=== PATIENT | female | born 1970 | race Caucasian/White ===

== ENCOUNTER → 2017-01-21 | Outpatient (CLI) | payer MEDICAID | END | disposition home or self-care (01) | LOC: Rad HDHVI 12:48 | PROVIDERS: ATTEND Internal Medicine Cardiovascular Disease | DX: R06.02 Shortness of breath (principal) | CPT/HCPCS: 93306 ==

== ENCOUNTER → 2017-02-14 | Outpatient (CLI) | payer MEDICAID ==
[~2017-02-14] VITALS: Ht 160 cm; Wt 71.2 kg
[~2017-02-14] MED LIST: ADENOSINE 60 MG in GIVE UN-DILUTED 0 ML IV ONE; ADENOSINE 90 MG/30 ML INJ IV ONE
== END | disposition home or self-care (01) ==
LOC: Rad HDHVI 10:25
PROVIDERS: ATTEND Internal Medicine Cardiovascular Disease
DX: I10 Essential (primary) hypertension (principal); E11.9 Type 2 diabetes mellitus without complications; E78.00 Pure hypercholesterolemia, unspecified; F17.210 Nicotine dependence, cigarettes, uncomplicated; Z82.49 Family history of ischemic heart disease and other diseases of the circulatory system
CPT/HCPCS: 78452; 93005; 96374; 96375; A9500; J0153

== ENCOUNTER 2024-04-24 10:15 | Emergency (ER) | payer MEDICAID ==
[~2024-04-24] VITALS: Ht 162.6 cm; Wt 66.0 kg
[2024-04-24 12:02] VITALS: PULSE 90; RESP 16; TEMP 98.2; O2SAT 97
[2024-04-24] MEDS: ONDANSETRON ODT 4 MG TAB PO ONE (12:19)
[2024-04-24 12:20] VITALS: BP 141/76; PULSE 90; RESP 16
[2024-04-24] MEDS: MORPHINE SULFATE INJ 2 MG/ml SYRG IM ONE (12:20)
== END 2024-04-24 12:41 | disposition home or self-care (01) ==
LOC: ER 10:15
DX: S82.891D Other fracture of right lower leg, subsequent encounter for closed fracture with routine healing (principal); M25.571 Pain in right ankle and joints of right foot; F41.9 Anxiety disorder, unspecified; F17.210 Nicotine dependence, cigarettes, uncomplicated; Z88.0 Allergy status to penicillin; Z88.1 Allergy status to other antibiotic agents; Z88.8 Allergy status to other drugs, medicaments and biological substances; X58.XXXD Exposure to other specified factors, subsequent encounter
CPT/HCPCS: 96372; 99283; J2270; J7040; Q0162

== ENCOUNTER 2024-07-22 12:05 | Emergency (ER) | payer MEDICAID ==
[~2024-07-22] VITALS: Ht 162.6 cm; Wt 64.5 kg
[~2024-07-22 12:05] MED LIST changes: -ADENOSINE 60 MG in GIVE UN-DILUTED 0 ML IV ONE; -ADENOSINE 90 MG/30 ML INJ IV ONE; +NAPR-746 PO; +TRAM50TA2 PO
[2024-07-22 13:21] VITALS: TEMP 98.4; O2SAT 97
[2024-07-22] MEDS: ONDANSETRON ODT 4 MG TAB PO ONE (13:47)
[2024-07-22] MEDS: MORPHINE SULFATE INJ 2 MG/ml SYRG IM ONE (13:48)
[2024-07-22] MEDS ORDERED: GABA-1250 PO (14:05)
[2024-07-22 14:14] VITALS: BP 126/77; PULSE 64; RESP 16
== END 2024-07-22 14:16 | disposition home or self-care (01) ==
LOC: ER 12:14
DX: M54.50 Low back pain, unspecified (principal); G89.29 Other chronic pain; E11.9 Type 2 diabetes mellitus without complications; F17.210 Nicotine dependence, cigarettes, uncomplicated; Z88.0 Allergy status to penicillin; Z88.2 Allergy status to sulfonamides; Z88.1 Allergy status to other antibiotic agents; Z88.5 Allergy status to narcotic agent
CPT/HCPCS: 96372; 99283; J2270; Q0162

== ENCOUNTER 2024-07-26 16:34 | Emergency (ER) | payer MEDICAID ==
[~2024-07-26] VITALS: Ht 160 cm; Wt 63.2 kg
[~2024-07-26 16:34] MED LIST changes: +GABA-1250 PO
[2024-07-26 17:13] LABS: Urine Bacteria None Seen /hpf (None Seen)
[2024-07-26 17:24] LABS: Urine Blood Negative /uL (Negative); Urine Clarity Clear (Clear); Urine Color Light-Yellow (Yellow); Urine Protein, UAD Negative (Negative); Urine Urobilinogen Normal (Negative); Urine WBC 3 /hpf (0 - 5)
[2024-07-26 17:30] LABS: Basophils # (auto) 0.1 10 ^3/uL (0-0.2); Basophils % (auto) 0.8 % (0.0-2.0); Eosinophils # (auto) 0.2 10 ^3/uL (0-0.8); Eosinophils % (auto) 2.1 % (0.0-7.0); Hemoglobin 13.9 g/dL (12.2-16.2); Lymphocytes # (auto) 2.9 10 ^3/uL (0.4-5.4); Lymphocytes % (auto) 25.6 % (10.0-50.0); Mean Corpuscular Hemoglobin 30.2 pg (28.0-32.0); Mean Corpuscular Hgb Conc. 33.1 g/dL (32.0-36.0); Mean Corpuscular Volume 91.3 fL (80.0-100.0); Monocytes # (auto) 0.8 10 ^3/uL (0-1.3); Monocytes % (auto) 7.1 % (0.0-12.0); Neutrophils # (auto) 7.3 10 ^3/uL (1.6-8.6); Neutrophils % (auto) 64.4 % (37.0-80.0); Nucleated Red Blood Cells % 0.1 %; Platelet Count (auto) 317 10^3/uL (140-450); Red Cell Distribution Width 15.9 % (11.8-14.3); White Blood Cell 11.4 10^3/uL (4.4-10.8)
[2024-07-26 17:46] LABS: Chloride 104 mmol/L (98-107); Potassium 3.8 mmol/L (3.5-5.1); Sodium 139 mmol/L (136-145)
[2024-07-26 17:47] LABS: Anion Gap 9 (5-15); Calcium 10.8 mg/dL (8.7-10.4); Carbon Dioxide 26 mmol/L (20-31)
[2024-07-26 17:52] LABS: Blood Urea Nitrogen 13 mg/dL (9-23); Glucose 64 mg/dL (74-106)
[2024-07-26] MEDS ORDERED: MORPHINE SULFATE INJ 2 MG/ml SYRG IM ONE (19:15)
[2024-07-26] MEDS: ONDANSETRON ODT 4 MG TAB PO ONE (19:32)
[2024-07-26] MEDS: MORPHINE SULFATE INJ 2 MG/ml SYRG IM ONE (20:05)
[2024-07-26 20:35] VITALS: BP 110/68; PULSE 68; RESP 20; TEMP 97.8; O2SAT 100
== END 2024-07-26 20:39 | disposition home or self-care (01) ==
LOC: ER 16:34
DX: M54.41 Lumbago with sciatica, right side (principal); M54.42 Lumbago with sciatica, left side; F17.210 Nicotine dependence, cigarettes, uncomplicated; E11.22 Type 2 diabetes mellitus with diabetic chronic kidney disease; N18.6 End stage renal disease; G89.29 Other chronic pain; Z79.899 Other long term (current) drug therapy; Z88.0 Allergy status to penicillin; Z88.1 Allergy status to other antibiotic agents; Z88.2 Allergy status to sulfonamides; Z88.5 Allergy status to narcotic agent
CPT/HCPCS: 36415; 80048; 81001; 85025; 96372; 99283; J2270; Q0162

== ENCOUNTER 2024-07-29 12:15 | Emergency (ER) | payer MEDICAID ==
[~2024-07-29] VITALS: Ht 162.6 cm; Wt 62.8 kg
[2024-07-29 13:20] VITALS: TEMP 98.4; O2SAT 100
[2024-07-29 13:48] VITALS: BP 114/58; PULSE 80; RESP 16
[2024-07-29] MEDS: MORPHINE SULFATE INJ 2 MG/ml SYRG IM ONE (13:48)
== END 2024-07-29 14:13 | disposition home or self-care (01) ==
LOC: ER 12:15
DX: G89.29 Other chronic pain (principal); M54.50 Low back pain, unspecified; F41.9 Anxiety disorder, unspecified; E11.22 Type 2 diabetes mellitus with diabetic chronic kidney disease; N18.6 End stage renal disease; F17.210 Nicotine dependence, cigarettes, uncomplicated; Z88.0 Allergy status to penicillin; Z88.2 Allergy status to sulfonamides; Z88.1 Allergy status to other antibiotic agents; Z88.8 Allergy status to other drugs, medicaments and biological substances; Z79.899 Other long term (current) drug therapy
CPT/HCPCS: 96372; 99283; J2270

== ENCOUNTER 2024-08-03 11:54 | Emergency (ER) | payer MEDICAID ==
[~2024-08-03] VITALS: Ht 162.6 cm; Wt 60.1 kg
[2024-08-03] MEDS ORDERED: TRAM50TA2 PO (13:19)
[2024-08-03 13:28] VITALS: BP 112/66; PULSE 84; RESP 16; TEMP 97.9; O2SAT 98
== END 2024-08-03 13:30 | disposition home or self-care (01) ==
LOC: ER 11:54
DX: E11.40 Type 2 diabetes mellitus with diabetic neuropathy, unspecified (principal); E11.22 Type 2 diabetes mellitus with diabetic chronic kidney disease; N18.6 End stage renal disease; F17.210 Nicotine dependence, cigarettes, uncomplicated; G89.29 Other chronic pain; Z79.899 Other long term (current) drug therapy; Z88.0 Allergy status to penicillin; Z88.1 Allergy status to other antibiotic agents; Z88.2 Allergy status to sulfonamides; Z88.5 Allergy status to narcotic agent

== ENCOUNTER 2024-08-23 12:29 | Emergency (ER) | payer MEDICAID ==
[~2024-08-23] VITALS: Ht 162.6 cm; Wt 57.3 kg
--- NOTE | 2024-08-23 13:07 | ED.PDOC ---
History of Present Illness HPI Comments 54Y F with PMHx DM, diabetic neuropathy, stenting, and lumpectomy presents to ED for chief complaint bilateral leg pain x2days. Pt states she is also experiencing back pain, bilateral arm pain, and bilateral feet pain. Pt states she feels tingling in her feet. Pt denies swelling, SOB, and chest pain. Pt take s Gabapentin and [place] at home. Chief Complaint: Lower Extremity Time Seen by MD: 13:01 Primary Care Provider: To Neil Notes: Medications, Allergies Allergies: Coded Allergies: Baclofen (Verified Allergy, Unknown, 02/14/17) Ciprofloxacin (Verified Allergy, Unknown, 02/14/17) Penicillins (Verified Allergy, Unknown, 02/14/17) Sulfa Antibiotics (Verified Allergy, Unknown, 07/05/24) Tramadol (Verified Allergy, Unknown, 07/05/24) Home Meds Active Scripts Tramadol Hcl (Tramadol Hcl) 50 Mg Tab, 50 MG PO Q8HP PRN for 5 Days, #15 TAB 0 Refills Prov:CORTNYE RASHID NP 08/03/24 Gabapentin (Gabapentin) 300 Mg Cap, 1 CAP PO TID, #45 CAP Prov:DESIRE THOMAS 07/22/24 Tramadol Hcl (Tramadol Hcl) 50 Mg Tab, 50 MG PO TIDP PRN for 2 Days, #6 TAB 0 Refills Prov:CORTNEY RASHID NP 06/02/24 Naproxen (Naproxen) 500 Mg Tab, 500 MG PO BIDPC for 30 Days, #60 TAB 0 Refills Prov:CORTNEY RASHID NP 04/27/24 Information Source: Patient Mode of Arrival: Ambulatory Severity: Mild Timing: Days Duration: Since onset Past Medical History PAST MEDICAL HISTORY: Anxiety, DM, ESRD Surgical History (Other): stenting 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 Hx Family History Family History: Reviewed,noncontributory to illness Social History Smoker: Cigarettes, Less Than 1 Pack/Day Alcohol: Denies ETOH Use Drugs: Denies Drug Use Lives In: Home Constitutional: denies: chills, diaphoresis, fatigue, fever, malaise, sweats, weakness, others EENTM: denies: blurred vision, double vision, ear bleeding, ear discharge, ear drainage, ear pain, ear ringing, eye pain, eye redness, hearing loss, mouth pain, mouth swelling, nasal discharge, nose bleeding, nose congestion, nose pain, photophobia, tearing, throat pain, throat swelling, voice changes, others Respiratory: denies: cough, hemoptysis, orthopnea, SOB at rest, shortness of breath, SOB with excertion, stridor, wheezing, others Cardiovascular: denies: chest pain, dizzy spells, diaphoresis, Dyspnea on exertion, edema, irregular heart beat, left arm pain, lightheadedness, palpitations, PND, syncope, others Gastrointestinal: denies: abdomen distended, abdominal pain, blood streaked bowels, constipated, diarrhea, dysphagia, difficulty swallowing, hematemesis, melena, nausea, poor appetite, poor fluid intake, rectal bleeding, rectal pain, vomiting, others Genitourinary: denies: abnormal vagina bleeding, burning, dyspareunia, dysuria, flank pain, frequency, hematuria, incontinence, pain, , vagina discharge, urgency, others Neurological: reports: tingling; denies: dizziness, fainting, headache, left sided numbness, left sided weakness, numbness, paresthesia, pre-existing deficit, right sided numbness, right sided weakness, seizure, speech problems, tremors, weakness, others Musculoskeletal: reports: back pain, joint pain; denies: gout, joint swelling, muscle pain, muscle stiffness, neck pain, others Integumetry: denies: bruises, change in color, change in hair/nails, dryness, laceration, lesions, lumps, rash, wounds, others Allergic/Immunocompromised: denies: Difficulty Healing, Frequent Infections, Hives, Itching, others Hematologic/Lymphatic: denies: anemia, blood clots, easy bleeding, easy bruising, swollen glands, others Endocrine: denies: excessive hunger, excessive sweating, excessive thirst, excessive urination, flushing, intolerance to cold, intolerance to heat, unexplained weight gain, unexplained weight loss, others Psychiatric: denies: anxiety, bipolar disorder, depression, hopeless, panic disorder, schizophrenia, sleepless, suicidal, others All Other Systems: Reviewed and Negative Physical Exam General Appearance: Moderate Distress, Normal HEENT: Normal ENT Inspection, Pharynx Normal, TMs Normal Neck: Full Range of Motion, Non-Tender, Normal, Normal Inspection Respiratory: Chest Non-Tender, Lungs Clear, No Accessory Muscle Use, No Respiratory Distress, Normal Breath Sounds Cardiovascular: No Edema, No JVD, No Murmur, No Gallop, Normal Peripheral Pulses, Regular Rate/Rhythm Breast Exam: Deferred Gastrointestinal: No Organomegaly, Non Tender, No Pulsatile Mass, Normal Bowel Sounds, Soft Genitalia: Deferred Pelvic: Deferred Rectal: Deferred Extremities: No calf tenderness, Normal capillary refill, Normal inspection, Normal range of motion, Non-tender, No pedal edema Musculoskeletal : Apperance: Normal Neurologic: Alert, automatic machine attendant II-XII nml as Tested, No Motor Deficits, Normal Affect, Normal Mood, No Sensory Deficits Cerebellar Function: Normal Reflexes: Normal Skin: Dry, Normal Color, Warm Peripheral Pulses: 3+ Radial (R), 3+ Radial (L) Lymphatic: No Adenopathy Was a procedure done? Was a procedure done?: No Differential Dx Considerations may include: Hyperglycemia Electrolyte imbalance X-Ray, Labs, Meds, VS Vital Signs Date Time Temp Pulse Resp B/P (MAP) Pulse Ox O2 Delivery O2 Flow Rate FiO2 08/23/24 12:46 98.6 90 18 137/82 (100) 100 Lab Test 08/23/24 12:44 Range/Units POC Glucose 372 H 70-106 mg/dl Patient alert. Came in because of chronic leg pain. Vitals stable. Answering all questions. No leg swelling pain Examination pristine. She is a smoker. Smoker's lung. Counseled patient on effects of smoking cigarettes for 15 minutes. Blood sugar slightly elevated. Was given pain medication. Was given insulin. Was told to drink plenty of fluids. Reviewed her previous visit. Explained to the patient. Was told to follow up with her primary care physician. Was told to come back if there is any problem. Time of 1ST Reevaluation: 13:31 Reevaluation 1ST: Improved Patient Education/Counseling: Diagnosis, Treatment Family Education/Counseling: No Family Present Departure 1 Departure Time of Disposition: 13:10 Impression: Primary Impression: Uncontrolled diabetes mellitus Qualified Codes: E13.65 - Other specified diabetes mellitus with hyperglycemia Additional Impressions: Acute exacerbation of chronic low back pain DM neuropathies Qualified Codes: E13.49 - Other specified diabetes mellitus with other diabetic neurological complication Disposition: HOME / SELF CARE / HOMELESS Condition: Good Discharged With: Self Critical Care Note Critical Care Time?: No Stability Stability form required: No Heart Score Heart Score: Heart Score Response (Comments) Value History N/A 0 EKG N/A 0 Age N/A 0 Risk Factors N/A 0 Troponin N/A 0 Total 0 I personally scribed for TYRONE RUVALCABA MD ([email or web address]) on 08/23/24 at 13:07. Electronically submitted by Candice Lundy ([email or web address]). TYRONE RUVALCABA MD Aug 23, 2024 13:07
[2024-08-23] MEDS: ONDANSETRON HCL 4 MG/2 ML VIAL IM ONE (13:15)
[2024-08-23] MEDS: MORPHINE SULFATE INJ 2 MG/ml SYRG IM ONE (13:15)
[2024-08-23 13:34] LABS: Anion Gap 5 (5-15); Carbon Dioxide 26 mmol/L (20-31); Chloride 104 mmol/L (98-107); Potassium 4.8 mmol/L (3.5-5.1); Sodium 135 mmol/L (136-145)
[2024-08-23 13:35] LABS: Calcium 10.4 mg/dL (8.7-10.4)
[2024-08-23 13:40] LABS: BUN/Creatinine Ratio 9.5 (10.0-20.0); Blood Urea Nitrogen 11 mg/dL (9-23); Glucose 345 mg/dL (74-106)
[2024-08-23] MEDS: InsuLIN REG 1unit/0.01ml Soln (100units/ml) SC ONE (14:30)
[2024-08-23 15:31] VITALS: BP 132/78; PULSE 82; RESP 18; TEMP 97.4; O2SAT 97
== END 2024-08-23 15:35 | disposition home or self-care (01) ==
LOC: ER 12:29
DX: E11.40 Type 2 diabetes mellitus with diabetic neuropathy, unspecified (principal); E11.65 Type 2 diabetes mellitus with hyperglycemia; G89.29 Other chronic pain; M54.50 Low back pain, unspecified; E11.22 Type 2 diabetes mellitus with diabetic chronic kidney disease; N18.6 End stage renal disease; F41.9 Anxiety disorder, unspecified; F17.210 Nicotine dependence, cigarettes, uncomplicated; Z98.890 Other specified postprocedural states; Z88.0 Allergy status to penicillin; Z88.1 Allergy status to other antibiotic agents; Z88.2 Allergy status to sulfonamides; Z88.5 Allergy status to narcotic agent; Z79.899 Other long term (current) drug therapy
CPT/HCPCS: 36415; 80048; 82962; 96372; 99285; J1815; J2270; J2405

== ENCOUNTER 2024-09-01 13:31 | Emergency (ER) | payer MEDICAID ==
[~2024-09-01] VITALS: Ht 162.6 cm; Wt 65.0 kg
[2024-09-01 14:03] VITALS: BP 127/85; PULSE 95; RESP 18; TEMP 98; O2SAT 99
--- NOTE | 2024-09-01 14:08 | ED.PDOC ---
Musculoskeletal HPI Comments 54 year old with hx of dm and neuropathy presents for pain to the right lower extremity. Patient with past medical history significant for neuropathy and chronic back pain x "4 years" presents to ER requesting pain management for her chronic pain. She rates her current pain as moderate and located to lower bilateral extremity. Notes she is currently taking Robaxin along with gabapentin for her pain with slight relief. Patient states that she does have an appointment with her PCP in two days and is going to be seen pain management in six days. Patient presents to ER ambulatory on arrival, with steady gait, in no distress and states the reason for her current ER visit is for pain ma nagement for her chronic pain. Denies fever, body aches, chills, shortness of breath, chest pain, n/v, abdominal/pelvic pain, changes in urination/bm or any further symptoms/complaints Chief Complaint: Lower Extremity Time Seen by MD: 13:51 Primary Care Provider: To Neil Notes: Nurses Notes, Medications, Allergies Allergies: Coded Allergies: Baclofen (Verified Allergy, Unknown, 02/14/17) Ciprofloxacin (Verified Allergy, Unknown, 02/14/17) Penicillins (Verified Allergy, Unknown, 02/14/17) Sulfa Antibiotics (Verified Allergy, Unknown, 07/05/24) Tramadol (Verified Allergy, Unknown, 07/05/24) Home Meds Active Scripts Tramadol Hcl (Tramadol Hcl) 50 Mg Tab, 50 MG PO Q8HP PRN for 5 Days, #15 TAB 0 Refills Prov:CORTNEY RASHID NP 08/03/24 Gabapentin (Gabapentin) 300 Mg Cap, 1 CAP PO TID, #45 CAP Prov:DESIRE THOMAS 07/22/24 Tramadol Hcl (Tramadol Hcl) 50 Mg Tab, 50 MG PO TIDP PRN for 2 Days, #6 TAB 0 Refills Prov:CORTNEY RASHID NP 06/02/24 Naproxen (Naproxen) 500 Mg Tab, 500 MG PO BIDPC for 30 Days, #60 TAB 0 Refills Prov:CORTNEY RASHID CUPOLA TENDER 04/27/24 Mode of Arrival: Ambulatory Past Medical History PAST MEDICAL HISTORY: Anxiety, DM, 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 Family History Family History: Reviewed,noncontributory to illness Social History Smoker: Cigarettes, Less Than 1 Pack/Day Alcohol: Denies ETOH Use Drugs: Denies Drug Use Lives In: Home All Other Systems: Reviewed and Negative Physical Exam General Appearance: No Apparent Distress, Normal HEENT: Normal ENT Inspection, Pharynx Normal, TMs Normal Neck: Full Range of Motion, Non-Tender, Normal, Normal Inspection Respiratory: Chest Non-Tender, Lungs Clear, No Accessory Muscle Use, No Respiratory Distress, Normal Breath Sounds Cardiovascular: No Edema, No JVD, No Murmur, No Gallop, Normal Peripheral Pulses, Regular Rate/Rhythm Breast Exam: Deferred Gastrointestinal: No Organomegaly, Non Tender, No Pulsatile Mass, Normal Bowel Sounds, Soft Genitalia: Deferred Pelvic: Deferred Rectal: Deferred Extremities: No calf tenderness, Normal capillary refill, Normal inspection, Normal range of motion, Non-tender, No pedal edema Musculoskeletal : Apperance: Normal Neurologic: Alert, fur blowing machine attendant II-XII nml as Tested, No Motor Deficits, Normal Affect, Normal Mood, No Sensory Deficits Cerebellar Function: Normal Reflexes: Normal Skin: Dry, Normal Color, Warm Lymphatic: No Adenopathy Was a procedure done? Was a procedure done?: No Differential Diagnosis EXT Differential Diagnosis: Other X-Ray, Labs, Meds, VS Vital Signs Date Time Temp Pulse Resp B/P (MAP) Pulse Ox O2 Delivery O2 Flow Rate FiO2 09/01/24 14:03 98.0 95 18 127/85 (99) 99 98.0 09/01/24 14:03 95 09/01/24 13:46 98.0 95 18 127/85 (99) 99 X-Ray, Labs, Meds, VS Comment After review of systems and physical examination this patient is aware that her symptoms do not represent a serious medical emergency this ear consistent with a chronic neuropathy therefore she is advised to follow up with PCP. No indication for labs imaging at this time. Patient hemodynamically stable. No red flags Time of 1ST Reevaluation: 14:07 Reevaluation 1ST: Improved Patient Education/Counseling: Diagnosis, Treatment Family Education/Counseling: Diagnosis, Treatment Departure 1 Departure Time of Disposition: 14:07 Impression: Primary Impression: DM neuropathy, painful Qualified Codes: E11.49 - Type 2 diabetes mellitus with other diabetic neurological complication Disposition: HOME / SELF CARE / HOMELESS Condition: Stable Discharged With: Self Critical Care Note Critical Care Time?: No Stability Stability form required: No Heart Score Heart Score: Heart Score Response (Comments) Value History N/A 0 EKG N/A 0 Age N/A 0 Risk Factors N/A 0 Troponin N/A 0 Total 0 CORTNEY RASHID NP Sep 01, 2024 14:08
[2024-09-01] MEDS: HYDROcodone-ACET 5/325MG TAB PO ONE (14:15)
== END 2024-09-01 14:56 | disposition home or self-care (01) ==
LOC: ER 13:31
DX: E11.22 Type 2 diabetes mellitus with diabetic chronic kidney disease (principal); E11.40 Type 2 diabetes mellitus with diabetic neuropathy, unspecified; N18.6 End stage renal disease; F17.210 Nicotine dependence, cigarettes, uncomplicated; Z88.0 Allergy status to penicillin; Z88.1 Allergy status to other antibiotic agents; Z88.2 Allergy status to sulfonamides; Z88.8 Allergy status to other drugs, medicaments and biological substances; Z79.899 Other long term (current) drug therapy

== ENCOUNTER 2024-09-02 12:24 | Emergency (ER) | payer MEDICAID ==
[~2024-09-02] VITALS: Ht 162.6 cm; Wt 64.1 kg
[2024-09-02 12:34] VITALS: BP 128/71; PULSE 60; RESP 16; O2SAT 99
== END 2024-09-02 14:21 | disposition left against medical advice (07) ==
LOC: ER 12:24
DX: M79.662 Pain in left lower leg (principal); M79.661 Pain in right lower leg; Z53.21 Procedure and treatment not carried out due to patient leaving prior to being seen by health care provider

== ENCOUNTER 2024-09-21 09:17 | Emergency (ER) | payer MEDICAID ==
[~2024-09-21] VITALS: Ht 162.6 cm; Wt 66.3 kg
[2024-09-21 09:42] VITALS: BP 135/63; PULSE 68; RESP 20; O2SAT 98
== END 2024-09-21 10:20 | disposition left against medical advice (07) ==
LOC: ER 09:17
DX: M79.10 Myalgia, unspecified site (principal); Z53.21 Procedure and treatment not carried out due to patient leaving prior to being seen by health care provider

== ENCOUNTER 2024-09-26 11:48 | Emergency (ER) | payer MEDICAID ==
[~2024-09-26] VITALS: Ht 162.6 cm; Wt 64.8 kg
[2024-09-26 13:43] VITALS: BP 135/62; PULSE 85; RESP 17; TEMP 97.5; O2SAT 98
--- NOTE | 2024-09-26 14:59 | ED.PDOC ---
History of Present Illness HPI Comments 54F presents to the ER w/ prior Hx of Right ankle surgery which may be associated to the c/c of LE. Pt reports that she twisted her ankle after a fall 2 weeks ago and has not gone to the ER to get it checked. Pt notes that she has had the same trauma done to the right ankle and had to have Sx, so she wants to check the ankle to make sure it isn't broken. Pt reports pain from the left ankle down to the bottom of the foot. Pt notes a pain type of a 07/22. PMHx of DM, CKD, ESRD, HTN, High Lipids, Liver Mak[place]la, [place] and Anxiety. SHx of Stents and C- Section x2. Social Hx of tobacco use, but denies alcohol and substance use. Family Hx of Lung Cancer. Denies chills, fever, N/V/D, SOB, CP or other associated symptom's, modifiers, or recent injuries or sick contact at this time. Chief Complaint: Lower Extremity Time Seen by MD: 14:25 Primary Care Provider: To Neil Notes: Nurses Notes, Medications, Allergies Allergies: Coded Allergies: Baclofen (Verified Allergy, Unknown, 02/14/17) Ciprofloxacin (Verified Allergy, Unknown, 02/14/17) Penicillins (Verified Allergy, Unknown, 02/14/17) Sulfa Antibiotics (Verified Allergy, Unknown, 07/05/24) Tramadol (Verified Allergy, Unknown, 07/05/24) Home Meds Active Scripts Tramadol Hcl (Tramadol Hcl) 50 Mg Tab, 50 MG PO Q8HP PRN for 5 Days, #15 TAB 0 Refills Prov:CORTNEY RASHID NP 08/03/24 Gabapentin (Gabapentin) 300 Mg Cap, 1 CAP PO TID, #45 CAP Prov:DESIRE THOMAS 07/22/24 Tramadol Hcl (Tramadol Hcl) 50 Mg Tab, 50 MG PO TIDP PRN for 2 Days, #6 TAB 0 Refills Prov:CORTNEY RASHID NP 06/02/24 Naproxen (Naproxen) 500 Mg Tab, 500 MG PO BIDPC for 30 Days, #60 TAB 0 Refills Prov:CORTNEY RASHID NP 04/27/24 Information Source: Patient Mode of Arrival: Ambulatory Severity: Moderate Timing: Weeks Duration: Since onset Prehospital treatment: None Associated signs and symptoms Left ankle swelling and pain Past Medical History PAST MEDICAL HISTORY: Anxiety, DM, ESRD, High Lipids, HTN, [place] Past Medical History (Other): CKD, Liver Dx Surgical History: (x2) Surgical History (Other): Stents and Right Ankle Sx 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 CAP FRAME History: Denies all SPINNER CAP FRAME Hx Family History Family History: Reviewed,noncontributory to illness, Family hx of Cancer (Lung Cancer) Social History Smoker: Cigarettes Alcohol: Denies ETOH Use Drugs: Denies Drug Use Lives In: Home Constitutional: denies: chills, diaphoresis, fatigue, fever, malaise, sweats, weakness, others EENTM: denies: blurred vision, double vision, ear bleeding, ear discharge, ear drainage, ear pain, ear ringing, eye pain, eye redness, hearing loss, mouth pain, mouth swelling, nasal discharge, nose bleeding, nose congestion, nose pain, photophobia, tearing, throat pain, throat swelling, voice changes, others Respiratory: denies: cough, hemoptysis, orthopnea, SOB at rest, shortness of breath, SOB with excertion, stridor, wheezing, others Cardiovascular: denies: chest pain, dizzy spells, diaphoresis, Dyspnea on exertion, edema, irregular heart beat, left arm pain, lightheadedness, palpitations, PND, syncope, others Gastrointestinal: denies: abdomen distended, abdominal pain, blood streaked bowels, constipated, diarrhea, dysphagia, difficulty swallowing, hematemesis, melena, nausea, poor appetite, poor fluid intake, rectal bleeding, rectal pain, vomiting, others Genitourinary: denies: abnormal vagina bleeding, burning, dyspareunia, dysuria, flank pain, frequency, hematuria, incontinence, pain, , vagina discharge, urgency, others Neurological: denies: dizziness, fainting, headache, left sided numbness, left sided weakness, numbness, paresthesia, pre-existing deficit, right sided numbness, right sided weakness, seizure, speech problems, tingling, tremors, weakness, others Musculoskeletal: reports: others (Left ankle swelling); denies: back pain, gout, joint pain, joint swelling, muscle pain, muscle stiffness, neck pain Integumetry: denies: bruises, change in color, change in hair/nails, dryness, laceration, lesions, lumps, rash, wounds, others Allergic/Immunocompromised: denies: Difficulty Healing, Frequent Infections, H myriam, Itching, others Hematologic/Lymphatic: denies: anemia, blood clots, easy bleeding, easy bruising, swollen glands, others Endocrine: denies: excessive hunger, excessive sweating, excessive thirst, excessive urination, flushing, intolerance to cold, intolerance to heat, unexplained weight gain, unexplained weight loss, others Psychiatric: denies: anxiety, bipolar disorder, depression, hopeless, panic disorder, schizophrenia, sleepless, suicidal, others Physical Exam General Appearance: No Apparent Distress HEENT: Normal ENT Inspection, Pharynx Normal, TMs Normal Neck: Full Range of Motion, Non-Tender, Normal, Normal Inspection Respiratory: Chest Non-Tender, Lungs Clear, No Accessory Muscle Use, No Respiratory Distress, Normal Breath Sounds Cardiovascular: No Edema, No JVD, No Murmur, No Gallop, Normal Peripheral Pulses, Regular Rate/Rhythm Breast Exam: Deferred Gastrointestinal: No Organomegaly, Non Tender, No Pulsatile Mass, Normal Bowel Sounds, Soft Genitalia: Deferred Pelvic: Deferred Rectal: Deferred Extremities: No calf tenderness, Normal capillary refill, No pedal edema Musculoskeletal : Location: Left Extremity Location: Ankle Apperance: Swelling, Tenderness: Mild Neurologic: Alert, 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 Was a procedure done?: No Differential Dx Considerations may include: Fracture, strain, contusion X-Ray, Labs, Meds, VS Vital Signs Date Time Temp Pulse Resp B/P (MAP) Pulse Ox O2 Delivery O2 Flow Rate FiO2 09/26/24 13:43 85 17 98 Room Air 09/26/24 13:43 97.5 85 17 135/62 (86) 98 97.5 09/26/24 12:05 97.5 85 17 135/62 (86) 98 X-ray of the left ankle shows soft tissue swelling but no sign of any fracture The patient is being discharged and will follow up with the primary care doctor The patient will return to the emergency department's the condition worsens. The diagnosis is left ankle sprain. The patient was placed in the Anuj wrap. Images Reviewed?: Images reviewed and evaluated by me Time of 1ST Reevaluation: 14:55 Reevaluation 1ST: Unchanged Patient Education/Counseling: Diagnosis, Treatment, Prognosis, Need For Follow Up Family Education/Counseling: No Family Present Departure 1 Departure Time of Disposition: 15:37 Impression: Primary Impression: Left ankle sprain Qualified Codes: S93.402A - Sprain of unspecified ligament of left ankle, initial encounter Disposition: HOME / SELF CARE / HOMELESS Condition: Fair Discharged With: Self Critical Care Note Critical Care Time?: No Stability Stability form required: No Heart Score Heart Score: Heart Score Response (Comments) Value History N/A 0 EKG N/A 0 Age N/A 0 Risk Factors N/A 0 Troponin N/A 0 Total 0 I personally scribed for JAVIER DALEY MD ([email or web address]) on 09/26/24 at 14:59. Electronically submitted by Porfirio Kim ([email or web address]). JAVIER DALEY MD Sep 26, 2024 14:59
--- NOTE | 2024-09-26 15:17 | DVH ---
CLINICAL INDICATION: Trauma, pain fall TECHNIQUE: XY L ANKLE 3 VIEW Comparison: None FINDINGS/IMPRESSION: : There is no evidence of acute fracture or dislocation. Small joint effusion.
== END 2024-09-26 15:35 | disposition home or self-care (01) ==
LOC: ER 11:48
DX: S93.402A Sprain of unspecified ligament of left ankle, initial encounter (principal); I12.0 Hypertensive chronic kidney disease with stage 5 chronic kidney disease or end stage renal disease; E11.22 Type 2 diabetes mellitus with diabetic chronic kidney disease; N18.6 End stage renal disease; I25.2 Old myocardial infarction; F41.9 Anxiety disorder, unspecified; F17.210 Nicotine dependence, cigarettes, uncomplicated; Z98.890 Other specified postprocedural states; Z88.0 Allergy status to penicillin; Z88.1 Allergy status to other antibiotic agents; Z88.2 Allergy status to sulfonamides; Z88.5 Allergy status to narcotic agent; Z79.899 Other long term (current) drug therapy; X50.1XXA Overexertion from prolonged static or awkward postures, initial encounter; Y93.89 Activity, other specified; Y92.89 Other specified places as the place of occurrence of the external cause; Y99.8 Other external cause status
CPT/HCPCS: 73610

== ENCOUNTER 2025-01-23 11:48 | Emergency (ER) | payer MEDICAID ==
[~2025-01-23] VITALS: Ht 160 cm; Wt 67.9 kg
[2025-01-23 12:31] VITALS: BP 150/84; PULSE 77; RESP 15; TEMP 97.1; O2SAT 97
--- NOTE | 2025-01-23 13:16 | ED.PDOC ---
Musculoskeletal HPI Comments This is a 54-year-old male that comes in for chronic pain that is no neuropathic. She is already on gabapentin and [place] but she states it has really been bothering her since Friday. It is all over her body.. Chief Complaint: Lower Extremity pain Time Seen by MD: 12:13 Primary Care Provider: To Neil Notes: Nurses Notes, Medications, Allergies Allergies: Coded Allergies: Baclofen (Verified Allergy, Unknown, 02/14/17) Ciprofloxacin (Verified Allergy, Unknown, 02/14/17) Penicillins (Verified Allergy, Unknown, 02/14/17) Sulfa Antibiotics (Verified Allergy, Unknown, 07/05/24) Tramadol (Verified Allergy, Unknown, 07/05/24) Home Meds Active Scripts Tramadol Hcl (Tramadol Hcl) 50 Mg Tab, 50 MG PO Q8HP PRN for 5 Days, #15 TAB 0 Refills Prov:CORTNEY RASHID GRADES 9 THROUGH 12 TEACHER 08/03/24 Gabapentin (Gabapentin) 300 Mg Cap, 1 CAP PO TID, #45 CAP Prov:DESIRE THOMAS 07/22/24 Tramadol Hcl (Tramadol Hcl) 50 Mg Tab, 50 MG PO TIDP PRN for 2 Days, #6 TAB 0 Refills Prov:CORTNEY RASHID GRADES 9 THROUGH 12 TEACHER 06/02/24 Naproxen (Naproxen) 500 Mg Tab, 500 MG PO BIDPC for 30 Days, #60 TAB 0 Refills Prov:CORTNEY RASHID GRADES 9 THROUGH 12 TEACHER 04/27/24 Mode of Arrival: Ambulatory Past Medical History PAST MEDICAL HISTORY: Anxiety, DM, ESRD, High Lipids, HTN, [place] 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 Family History Family History: Reviewed,noncontributory to illness, Family hx of Cancer Social History Smoker: Cigarettes Alcohol: Denies ETOH Use Drugs: Denies Drug Use Lives In: Home Constitutional: reports: others (chronic pain) Musculoskeletal: reports: joint pain Physical Exam General Appearance: No Apparent Distress, Normal HEENT: Normal ENT Inspection, PERRL/EOMI, Pharynx Normal, TMs Normal Neck: Non-Tender, Normal Inspection, Supple Respiratory: Lungs Clear, No Respiratory Distress, Normal Breath Sounds Cardiovascular: Regular Rate/Rhythm Breast Exam: Deferred Gastrointestinal: Normal Bowel Sounds, Soft Genitalia: Deferred Pelvic: Deferred Rectal: Deferred Extremities: Normal inspection, Normal range of motion Neurologic: Alert, No Motor Deficits, Normal Affect, Normal Mood Cerebellar Function: NOT DONE Reflexes: Normal Skin: Dry, Warm Lymphatic: No Adenopathy Was a procedure done? Was a procedure done?: No Differential Diagnosis EXT Differential Diagnosis: Cellulitis X-Ray, Labs, Meds, VS Vital Signs Date Time Temp Pulse Resp B/P (MAP) Pulse Ox O2 Delivery O2 Flow Rate FiO2 01/23/25 12:31 77 15 97 Room Air 01/23/25 12:31 97.1 77 15 150/84 (106) 97 97.1 01/23/25 11:53 97.0 77 15 150/84 (106) 97 97.0 Current Medications Medications (Trade) Dose Ordered Sig/Lima Route Start Time Stop Time Status Last Admin Ketorolac Tromethamine (Toradol Injection) 60 mg ONCE ONCE IM 01/23/25 13:30 01/23/25 13:31 DC 01/23/25 13:32 X-Ray, Labs, Meds, VS Comment Patient seen and examined by me. Patient has chronic pain she is asking for something stronger than Toradol I offered morphine but only with a ride to go home she is unable to produce that. We will give her a shot of Toradol 1st.. Patient felt much better after the Toradol shot we will send her home.. I instructed patient to make sure that her sugars are good because of her blood sugars abnormal it could be causing more pain. Instructed to continue her current medicines also ice and heat would help. Time of 1ST Reevaluation: 13:45 Reevaluation 1ST: Improved Patient Education/Counseling: Diagnosis, Treatment, Prognosis, Need For Follow Up Family Education/Counseling: No Family Present Departure 1 Departure Time of Disposition: 13:45 Impression: Primary Impression: Neuropathic pain of right lower extremity Disposition: 01 HOME / SELF CARE / HOMELESS Condition: Good Additional Instructions: Make sure that your blood sugar is in good control if your sugars are high your pain might be worse Continue taking your current meds if not follow up with your regular doctor they might want to increase your gabapentin Ice alternating with heat to help your pain. Discharged With: Self Critical Care Note Critical Care Time?: No Stability Stability form required: COLBY Wiley Jan 23, 2025 13:16
[2025-01-23] MEDS: KETOROLAC TROMETH 60MG/2ML VIAL IM ONE (13:32)
== END 2025-01-23 13:51 | disposition home or self-care (01) ==
LOC: ER 11:48
DX: M79.2 Neuralgia and neuritis, unspecified (principal); M79.661 Pain in right lower leg; F41.9 Anxiety disorder, unspecified; F17.210 Nicotine dependence, cigarettes, uncomplicated; G89.29 Other chronic pain; I12.0 Hypertensive chronic kidney disease with stage 5 chronic kidney disease or end stage renal disease; E11.22 Type 2 diabetes mellitus with diabetic chronic kidney disease; N18.6 End stage renal disease; Z79.899 Other long term (current) drug therapy; Z88.0 Allergy status to penicillin; Z88.1 Allergy status to other antibiotic agents; Z88.2 Allergy status to sulfonamides; Z88.5 Allergy status to narcotic agent
CPT/HCPCS: 96372; 99283; J1885